=== PATIENT | female | born 1955 | race Caucasian/White ===

== ENCOUNTER 2022-12-05 18:15 | Emergency (ER) | payer OTHER ==
[~2022-12-05] VITALS: Ht 167.6 cm; Wt 90.7 kg
[2022-12-05 18:23] VITALS: BP_SYST 145
[2022-12-05] MEDS ORDERED: ACETAMINOPHEN 500 MG TABLET PO ONE (19:45)
[2022-12-05] MEDS ORDERED: IBUPROFEN 600 MG TABLET PO ONE (19:45)
[2022-12-05 20:19] LABS: BASOPHILS % (AUTO) 0.3 % (0.0-2.0); EOSINOPHILS # (AUTO) 0.1 K/uL (0.0-0.4); EOSINOPHILS % (AUTO) 1.2 % (0.0-4.0); HEMATOCRIT 31.1 % (36-48); HEMOGLOBIN 10.1 g/dL (12.0-16.0); MEAN CORPUSCULAR HEMOGLOBIN 26 pg (27-31); MEAN CORPUSCULAR HGB CONC 32 % (32-36); MEAN CORPUSCULAR VOLUME 80 fL (79.0-98.0); MONOCYTES # (AUTO) 0.5 K/uL (0.0-1.0); MONOCYTES % (AUTO) 8.3 % (1.7-9.3); NEUTROPHILS # (AUTO) 2.2 K/uL (1.8-7.7); NEUTROPHILS % (AUTO) 38.2 % (40.0-70.0); PLATELET COUNT (AUTO) 211 K/uL (130-430); RED BLOOD CELL COUNT(AUTO) 3.89 MIL/uL (4.2-6.2); RED CELL DISTRIBUTION WIDTH 15.1 % (9.0-15.0); WHITE BLOOD COUNT (AUTO) 5.7 K/uL (4.8-10.8)
[2022-12-05 20:35] LABS: CALCIUM 8.7 mg/dL (8.4-11.0); CREATININE 0.72 mg/dL (0.55-1.30)
[2022-12-05 20:46] LABS: INR 1.1 (0.8-1.2); PROTHROMBIN TIME 11.4 SECS (9.5-12.5)
[2022-12-05] MEDS ORDERED: APIXABAN 2.5 MG TABLET PO ONE (21:00)
[2022-12-05] MEDS ORDERED: HYDR-3917 PO (21:12)
[2022-12-05] MEDS ORDERED: APIX5TAB PO (21:12)
[2022-12-05] MEDS ORDERED: HYDROmorphone 1 MG/ML INJ. CARTRIDGE IM ONE (21:15)
[2022-12-05 21:53] VITALS: BP_SYST 145
--- NOTE | 2022-12-05 21:53 | NUR ---
Patient given written and verbal discharge instructions and verbalizes understanding. ER MD discussed with patient the results and treatment provided. Patient in stable condition. ID arm band removed. IV catheter removed intact and dressing applied, no active bleeding. Rx of norco eliquis given. Patient educated on pain management and to follow up with PMD. Pain Scale . Opportunity for questions provided and answered. Medication side effect fact sheet provided.
== END 2022-12-05 21:53 | disposition home or self-care (01) ==
LOC: SED 18:15
DX: I82.4Z1 Acute embolism and thrombosis of unspecified deep veins of right distal lower extremity (principal); R22.41 Localized swelling, mass and lump, right lower limb; E11.9 Type 2 diabetes mellitus without complications; I10 Essential (primary) hypertension; Z79.899 Other long term (current) drug therapy
CPT/HCPCS: 99283; 80048; 85025; 85610; 36415; J1170